=== PATIENT | male | born 1950 | race African-American/Black ===

== ENCOUNTER → 2017-01-21 | Day surgery (SDC) | payer OTHER | END | disposition home or self-care (01) | LOC: SDC 06:06 | DX: N28.89 Other specified disorders of kidney and ureter (principal); I50.9 Heart failure, unspecified; J18.9 Pneumonia, unspecified organism; I25.2 Old myocardial infarction; E11.9 Type 2 diabetes mellitus without complications; M19.90 Unspecified osteoarthritis, unspecified site; J44.9 Chronic obstructive pulmonary disease, unspecified; I11.0 Hypertensive heart disease with heart failure; I25.10 Atherosclerotic heart disease of native coronary artery without angina pectoris; Z95.0 Presence of cardiac pacemaker; F17.210 Nicotine dependence, cigarettes, uncomplicated; Z90.49 Acquired absence of other specified parts of digestive tract; Z79.82 Long term (current) use of aspirin; Z79.899 Other long term (current) drug therapy; Z88.5 Allergy status to narcotic agent; Z53.09 Procedure and treatment not carried out because of other contraindication | CPT/HCPCS: J2704; Q9967 ==